=== PATIENT | male | born 1950 | race Caucasian/White ===

== ENCOUNTER 2017-09-22 12:36 | Emergency (ER) | payer MEDICARE, OTHER ==
[2017-09-22] MEDS ORDERED: MECLIZINE HCL 25 MG TABLET PO ONE (13:42)
--- NOTE | 2017-09-22 13:43 | ER Document Report ---
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 Reports about 2 weeks of being lightheaded and equal living off. On Thursday he developed a respiratory illness with cough, green sputum. He does not recall what happened from when he got home Thursday night when he woke up Thursday morning. 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 He does have vertigo type symptoms with nystagmus now made worse with rapid head movement. I have greeted and performed a rapid initial assessment of this patient. A comprehensive ED assessment and evaluation of the patient, analysis of test results and completion of the medical decision making process will be conducted by additional ED providers. TRAVEL OUTSIDE OF THE [place] IN LAST 30 DAYS: No - Related Data Allergies/Adverse Reactions: Penicillins Allergy (Unknown, Verified 09/22/17 12:39) Past Medical History - Social History Chew tobacco use (# tins/day): No Frequency of alcohol use: None Drug Abuse: None - Past Medical History Cardiac Medical History: Reports: Hx Hypertension - BP 150/100 PT STATES THIS IS NORMAL FOR HIM Denies: Hx Coronary Artery Disease, Hx Heart Attack Pulmonary Medical History: Reports: Hx Pneumonia Denies: Hx Asthma, Hx Bronchitis, Hx COPD Neurological Medical History: Denies: Hx Cerebrovascular Accident, Hx Seizures Renal/ Medical History: Denies: Hx Peritoneal Dialysis Musculoskeltal Medical History: Reports Hx Arthritis - ANKLES, WRIST, NECK, BACK Past Surgical History: Reports: Hx Genitourinary Surgery - right ingunal hernia repair 2008, Hx Orthopedic Surgery - left knee surgery, left foot surgery, carpal tunnel surgery right hand,. Denies: Hx Pacemaker - Immunizations Hx Diphtheria, Pertussis, Tetanus Vaccination: No Physical Exam - Vital signs Vitals: Temp Pulse Resp BP Pulse Ox 98.5 F 84 16 136/95 H 95 09/22/17 12:42 09/22/17 12:42 09/22/17 12:42 09/22/17 12:42 09/22/17 12:42 Course - Vital Signs Vital signs: Temp Pulse Resp BP Pulse Ox 98.5 F 84 16 136/95 H 95 09/22/17 12:42 09/22/17 12:42 09/22/17 12:42 09/22/17 12:42 09/22/17 12:42
--- NOTE | 2017-09-22 14:11 | RADIOLOGY REPORT (SQ) ---
EXAM DESCRIPTION: CT HEAD WITHOUT COMPLETED DATE/TIME: 09/22/2017 2:03 pm REASON FOR STUDY: Dizziness, equilibrium off, memory deficits COMPARISON: 09/19/2012 TECHNIQUE: Axial images acquired through the brain without intravenous contrast. Images reviewed wi th bone, brain and subdural windows. Images stored on PACS. All CT scanners at this facility use dose modulation, iterative reconstruction, and/or weight based d osing when appropriate to reduce radiation dose to as low as reasonably achievable (ALARA). [facility]: Dose Right [facility]: CareDose [facility]: Dose Right [facility]: Teradose 4D [facility]: [employer], an [employer] RADIATION DOSE: mGy. LIMITATIONS: None. FINDINGS: VENTRICLES: Normal size and contour. CEREBRUM: No masses. No hemorrhage. No midline shift. No evidence for acute infarction. Normal gra y/white matter differentiation. No areas of low density in the white matter. CEREBELLUM: No masses. No hemorrhage. No alteration of density. No evidence for acute infarction. EXTRAAXIAL SPACES: No fluid collections. No masses. ORBITS AND GLOBE: No intra- or extraconal masses. Normal contour of globe without masses. CALVARIUM: No fracture. PARANASAL SINUSES: Mucosal thickening right maxillary sinus. SOFT TISSUES: No mass or hematoma. OTHER: No other significant finding. IMPRESSION: NORMAL BRAIN CT WITHOUT CONTRAST. EVIDENCE OF ACUTE STROKE: NO. COMMENT: Quality ID # [id number]: Final reports with documentation of one or more dose reduction techniques (e.g., Automated exposure control, adjustment of the mA and/or kV according to patient size, use of iterative reconstruction technique) TECHNICAL DOCUMENTATION: JOB ID: [id number] [employer]- All Rights Reserved
--- NOTE | 2017-09-22 14:28 | RADIOLOGY REPORT (SQ) ---
EXAM DESCRIPTION: CHEST PA/LAT COMPLETED DATE/TIME: 09/22/2017 2:18 pm REASON FOR STUDY: Congested cough with green sputum COMPARISON: 06/19/2011. EXAM PARAMETERS: NUMBER OF VIEWS: two views TECHNIQUE: Digital Frontal and Lateral radiographic views of the chest acquired. RADIATION DOSE: NA LIMITATIONS: none FINDINGS: LUNGS AND PLEURA: No opacities, masses or pneumothorax. No pleural effusion. MEDIASTINUM AND HILAR STRUCTURES: No masses or contour abnormalities. HEART AND VASCULAR STRUCTURES: Heart normal size. No evidence for failure. BONES: No acute findings. Degenerative changes in the spine. HARDWARE: Hardware in the cervical spine. OTHER: No other significant finding. IMPRESSION: NO SIGNIFICANT RADIOGRAPHIC FINDING IN THE CHEST. TECHNICAL DOCUMENTATION: JOB ID: [id number] [employer]- All Rights Reserved
[2017-09-22 15:04] LABS: ABSOLUTE LYMPHOCYTES (AUTO) 0.8 10^3/uL (0.5-4.7); ABSOLUTE MONOCYTES (AUTO) 0.7 10^3/uL (0.1-1.4); ABSOLUTE NEUT (AUTO) 4.5 10^3/uL (1.7-8.2); BASOPHILS % (AUTO) 0.4 % (0-2); EOSINOPHILS % (AUTO) 0.2 % (0-6); HEMATOCRIT 42.2 % (37.9-51.0); HEMOGLOBIN 14.4 g/dL (13.5-17.0); LYMPHOCYTES % (AUTO) 12.7 % (13-45); MEAN CORPUSCULAR HEMOGLOBIN 29.5 pg (27.0-33.4); MEAN CORPUSCULAR HGB CONC 34.3 g/dL (32.0-36.0); MEAN CORPUSCULAR VOLUME 86 fl (80-97); MONOCYTES % (AUTO) 11.2 % (3-13); PLATELET COUNT 142 10^3/uL (150-450); RED CELL DISTRIBUTION WIDTH 12.6 % (11.5-14.0); SEGMENTED NEUTROPHILS % (AUTO) 75.5 % (42-78); TOTAL CELLS COUNTED % (AUTO) 100 %
[2017-09-22 15:15] LABS: ALANINE AMINOTRANSFERASE 46 U/L (21-72); ALBUMIN 4.1 g/dL (3.5-5.0); ALKALINE PHOSPHATASE 50 U/L (38-126); ANION GAP 14 (5-19); ASPARTATE AMINO TRANSFERASE 53 U/L (17-59); BILIRUBIN,DIRECT 0.3 mg/dL (0.0-0.4); BILIRUBIN,TOTAL 0.5 mg/dL (0.2-1.3); BLOOD UREA NITROGEN 17 mg/dL (7-20); CALCIUM 9.5 mg/dL (8.4-10.2); CARBON DIOXIDE 27 mmol/L (22-30); CHLORIDE 102 mmol/L (98-107); GLUCOSE 84 mg/dL (75-110); POTASSIUM 4.4 mmol/L (3.6-5.0); SODIUM 143.1 mmol/L (137-145); TOTAL PROTEIN 6.4 g/dL (6.3-8.2)
--- NOTE | 2017-09-22 16:02 | ER Document Report ---
ED General - General Chief Complaint: Headache Stated Complaint: HEADACHE,COUGH Time Seen by Provider: 09/22/17 13:33 Notes: 66-year-old male with a history of hypertension and smoking presents with about a month and a half of gait instability and repeated falls, describes feeling like he is drunk but not being actually drunk. This is increased in frequency in the last week. 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 He does not remember doing this and then found it this morning. No speech difficulty focal weakness or numbness. He has been having some upper respiratory symptoms including congestion and cough with headache. TRAVEL OUTSIDE OF THE [place] IN LAST 30 DAYS: No - Related Data Allergies/Adverse Reactions: Penicillins Allergy (Unknown, Verified 09/22/17 12:39) Past Medical History - Social History Smoking Status: Never Smoker Chew tobacco use (# tins/day): No Frequency of alcohol use: None Drug Abuse: None Family History: None Patient has suicidal ideation: No Patient has homicidal ideation: No - Past Medical History Cardiac Medical History: Reports: Hx Hypertension - BP 150/100 PT STATES THIS IS NORMAL FOR HIM Denies: Hx Coronary Artery Disease, Hx Heart Attack Pulmonary Medical History: Reports: Hx Pneumonia Denies: Hx Asthma, Hx Bronchitis, Hx COPD Neurological Medical History: Denies: Hx Cerebrovascular Accident, Hx Seizures Renal/ Medical History: Denies: Hx Peritoneal Dialysis Musculoskeltal Medical History: Reports Hx Arthritis - ANKLES, WRIST, NECK, BACK Past Surgical History: Reports: Hx Genitourinary Surgery - right ingunal hernia repair 2008, Hx Orthopedic Surgery - left knee surgery, left foot surgery, carpal tunnel surgery right hand,. Denies: Hx Pacemaker - Immunizations Hx Diphtheria, Pertussis, Tetanus Vaccination: No Review of Systems - Review of Systems Notes: REVIEW OF SYSTEMS GEN: Denies fever, chills, weight loss ENT: Denies sore throat, nasal discharge, ear pain EYES: "They are doing surgery on my eyes because they do not work" CV: Denies chest pain, palpitations, edema RESP: Denies cough, shortness of breath, wheezing GI: Denies abdominal pain, nausea, vomiting, diarrhea MSK: Denies joint pain/swelling, edema, SKIN: Denies rash, skin lesions LYMPH: Denies swollen glands/lymph nodes NEURO: Losing track of time gait difficulty PSYCH: Denies depression, suicidal or homicidal ideation PHYSICAL EXAMINATION General: No acute distress, well-nourished Head: Atraumatic, normocephalic ENT: Mouth normal, oropharynx moist, no exudates or tonsillar enlargement Eyes: Conjunctiva normal, pupils equal, lids normal. Multidirectional lateral and upper nystagmus. Neck: No JVD, supple, no guarding CVS: Normal rate, regular rhythm, no murmurs Resp: No resp distress, equal and normal breath sounds bilaterally GI: Nondistended, soft, no tenderness to palpation, no rebound or guarding Ext: No deformities, no edema, normal range of motion in upper and lower ext Back: No CVA or midline TTP Skin: No rash, warm Lymphatic: No lymphadeopathy noted Neuro: Awake, alert. Face symmetric. GCS 15. Gait is quite unstable. Cannot do can tandem gait. Cranial nerves II through XII are intact except for of previously mentioned nystagmus. Fingernosefinger is intact. Grossly normal strength and sensation in all 4 extremities. Constitutional: No symptoms reported EENT: No symptoms reported Cardiovascular: No symptoms reported Respiratory: No symptoms reported Gastrointestinal: No symptoms reported Genitourinary: No symptoms reported Male Genitourinary: No symptoms reported Musculoskeletal: No symptoms reported Skin: No symptoms reported Hematologic/Lymphatic: No symptoms reported Neurological/Psychological: No symptoms reported Physical Exam - Vital signs Vitals: Temp Pulse Resp BP Pulse Ox 98.5 F 84 16 136/95 H 95 09/22/17 12:42 09/22/17 12:42 09/22/17 12:42 09/22/17 12:42 09/22/17 12:42 Course - Re-evaluation Re-evalutation: 09/22/17 16:02 70 patient presents with insidious onset of gait instability now with multidirectional nystagmus and vertigo type symptoms. He also had an episode of blacking out. This could be transient global amnesia although he continues to form new memories. Concern for posterior circulation stroke. CT head and labs were all done before my evaluation, and they are all negative. Pressure hydrocephalus is also a consideration. Will admit for further workup including possible MRI. 09/22/17 16:[address] scan x-ray and labs are all normal. I am concerned about his neurologic exam. I attempted to admit him here to [place] the hospitalist is concerned that there will not be neurologic backup. I spoke with the transfer center at [facility], with Dr. Brandon who accepted the patient on behalf of Dr. Monge from the medical house staff service. Patient was informed it is okay with this. - Vital Signs Vital signs: Temp Pulse Resp BP Pulse Ox 98.5 F 84 16 136/95 H 95 09/22/17 12:42 09/22/17 12:42 09/22/17 12:42 09/22/17 12:42 09/22/17 12:42 - Laboratory Result Diagrams: 09/22/17 14:30 09/22/17 14:30 Laboratory results interpreted by me: 09/22/17 14:30 Plt Count 142 L Lymphocytes % 12.7 L - Diagnostic Test Radiology reviewed: Image reviewed, Reports reviewed Discharge - Discharge Clinical Impression: Nystagmus, Ataxia Disposition: [facility]
[2017-09-22 21:43] VITALS: BP 135/80
== END 2017-09-22 21:10 | disposition short-term general hospital (02) ==
LOC: ER 12:36
DX: H55.00 Unspecified nystagmus (principal); R27.0 Ataxia, unspecified; R05 Cough; R51 Headache; I10 Essential (primary) hypertension; Z88.0 Allergy status to penicillin
CPT/HCPCS: 99285; 36415; 87070; 87205; 85025; 80053; 71046; 70450; A9270

== ENCOUNTER → 2018-04-13 | Outpatient (CLI) | payer MEDICARE, OTHER ==
--- NOTE | 2018-04-13 14:40 | RADIOLOGY REPORT (SQ) ---
EXAM DESCRIPTION: CT ABD/PELVIS COMBO COMPLETED DATE/TIME: 04/13/2018 9:17 am REASON FOR STUDY: MICROSCOPIC HEMATURIA (R31.21) R31.21 ASYMPTOMATIC MICROSCOPIC HEMATURIA COMPARISON: None. TECHNIQUE: CT scan of the abdomen and pelvis performed with and without intravenous contrast, and wi thout oral contrast. Contrasted imaging performed helical scanning technique and dynamic intravenous contrast injection. Images reviewed with lung, soft tissue, and bone windows. Reconstructed coronal a nd sagittal MPR images reviewed. Delayed images for evaluation of the urinary system also acquired. A ll images stored on PACS. All CT scanners at this facility use dose modulation, iterative reconstruction, and/or weight based d osing when appropriate to reduce radiation dose to as low as reasonably achievable (ALARA). [facility]: Dose Right [facility]: CareDose [facility]: Dose Right [facility]: Teradose 4D [facility]: [employer] CONTRAST TYPE AND DOSE: contrast/concentration: Isovue 370.00 mg/ml; Total Contrast Delivered: 85.0 ml; Total Saline Delivered: 69.0 ml RENAL FUNCTION: Creatinine 0.6 RADIATION DOSE: CT Rad equipment meets quality standard of care and radiation dose reduction techniq ues were employed. CTDIvol: 10.0 - 10.8 mGy. DLP: 1588 mGy-cm. . LIMITATIONS: None. FINDINGS: NON-CONTRASTED IMAGING: No significant renal or bladder calcifications. No other significa nt organ calcifications. POST-CONTRASTED IMAGING: LOWER CHEST: No significant findings. No nodules or infiltrates. LIVER: Normal size. No masses. No dilated ducts. SPLEEN: Normal size. No focal lesions. PANCREAS: No masses. No significant calcifications. No adjacent inflammation or peripancreatic fluid collections. Pancreatic duct not dilated. GALLBLADDER: No identified stones by CT criteria. No inflammatory changes to suggest cholecystitis. ADRENAL GLANDS: No significant masses or asymmetry. RIGHT KIDNEY AND URETER: No solid masses. No significant calcifications. No hydronephrosis or hyd roureter. LEFT KIDNEY AND URETER: No solid masses. No significant calcifications. No hydronephrosis or hydr oureter. AORTA AND VESSELS: No aneurysm. No dissection. Renal arteries, SMA, celiac without stenosis. RETROPERITONEUM: No retroperitoneal adenopathy, hemorrhage or masses. BOWEL AND PERITONEAL CAVITY: No masses or inflammatory changes. No free fluid or peritoneal masses. APPENDIX: Not visualized. PELVIS: Mild symmetric thickening of the urinary bladder wall. Prostatic impression. Prostate 5.5 x 6.8 cm. No pelvic adenopathy. ABDOMINAL WALL: No masses. No hernias. BONES: No acute findings. OTHER: No other significant finding. IMPRESSION: No evidence of urinary tract stones or mass. TECHNICAL DOCUMENTATION: JOB ID: [id number] Quality ID # [id number]: Final reports with documentation of one or more dose reduction techniques (e.g., Au tomated exposure control, adjustment of the mA and/or kV according to patient size, use of iterative reconstruction technique) 2010 [employer]- All Rights Reserved Reading location - IP/workstation name: [email or web address]
== END ==
LOC: RAD 08:33
PROVIDERS: ATTEND Urology
DX: R31.21 Asymptomatic microscopic hematuria (principal)
CPT/HCPCS: 74178; 82565

== ENCOUNTER 2020-02-03 15:46 | Emergency (ER) | payer OTHER, MEDICARE ==
[2020-02-03 16:47] LABS: ABSOLUTE BASOPHILS # (AUTO) 0.1 10^3/uL (0.0-0.2); ABSOLUTE LYMPHOCYTES (AUTO) 1.1 10^3/uL (0.5-4.7); ABSOLUTE MONOCYTES (AUTO) 0.6 10^3/uL (0.1-1.4); ABSOLUTE NEUT (AUTO) 6.8 10^3/uL (1.7-8.2); BASOPHILS % (AUTO) 0.6 % (0-2); EOSINOPHILS % (AUTO) 0.2 % (0-6); HEMATOCRIT 42.4 % (37.9-51.0); HEMOGLOBIN 14.5 g/dL (13.5-17.0); LYMPHOCYTES % (AUTO) 13.2 % (13-45); MEAN CORPUSCULAR HEMOGLOBIN 30.3 pg (27.0-33.4); MEAN CORPUSCULAR HGB CONC 34.3 g/dL (32.0-36.0); MEAN CORPUSCULAR VOLUME 88 fl (80-97); PLATELET COUNT 182 10^3/uL (150-450); RED CELL DISTRIBUTION WIDTH 13.3 % (11.5-14.0); TOTAL CELLS COUNTED % (AUTO) 100 %; WHITE BLOOD COUNT 8.7 10^3/uL (4.0-10.5)
[2020-02-03 16:59] LABS: ALKALINE PHOSPHATASE 42 U/L (38-126); ANION GAP 9 (5-19); ASPARTATE AMINO TRANSFERASE 27 U/L (17-59); BILIRUBIN,TOTAL 0.6 mg/dL (0.2-1.3); BLOOD UREA NITROGEN 14 mg/dL (7-20); CALCIUM 8.9 mg/dL (8.4-10.2); CARBON DIOXIDE 22 mmol/L (22-30); CHLORIDE 105 mmol/L (98-107); GLUCOSE 89 mg/dL (75-110); POTASSIUM 4.4 mmol/L (3.6-5.0); TOTAL PROTEIN 6.7 g/dL (6.3-8.2)
[2020-02-03 18:34] LABS: APPEARANCE,URINE CLEAR; BILIRUBIN,URINE NEGATIVE (NEGATIVE); COLOR,URINE YELLOW; GLUCOSE, URINE NEGATIVE (NEGATIVE); KETONES,URINE NEGATIVE (NEGATIVE); LEUKOCYTE ESTERASE,URINE NEGATIVE (NEGATIVE); NITRITE,URINE NEGATIVE (NEGATIVE); PROTEIN,URINE NEGATIVE (NEGATIVE); URINE SPECIFIC GRAVITY 1.013; UROBILINOGEN,URINE NEGATIVE mg/dL (<2.0)
[2020-02-03] MEDS ORDERED: ONDANSETRON HCL INJ/PF 4 MG/2 ML SDV IV ONE (18:51)
[2020-02-03] MEDS ORDERED: HYDRALAZINE HCL INJ/PF 20 MG/1 ML SDV IV ONE (18:52)
[2020-02-03] MEDS ORDERED: RINGERS SOLUTION,LACTATED 1,000 ML IV ONE (18:52)
--- NOTE | 2020-02-03 18:52 | ER Document Report ---
ED GI/ <FULLERKRUNAL - Last Filed: 02/03/20 21:21> - General Mode of Arrival: Ambulatory Information source: Patient TRAVEL OUTSIDE OF THE [place] IN LAST 30 DAYS: No - Related Data Home Medications: HTn med. Methadone. Ritalin <RHEA MENDOZA - Last Filed: 02/03/20 22:13> - General Chief Complaint: Nausea/Vomiting/Diarrhea Stated Complaint: SHORTNESS OF BREATH Time Seen by Provider: 02/03/20 18:33 Primary Care Provider: BERNARDO SCHROEDER MD [Primary Care Provider] - Follow up as needed Notes: 69-year-old male past medical history significant for hypertension, hep C vocal cord cancer presents to the emergency room complaining of general body aches, nausea vomiting and diarrhea for the past 3 days. States the diarrhea has pretty much resolved but still has the body aches along with the nausea and vomiting. States he only 1 small loose stool today. Denies any fevers. Denies any shortness of breath or difficulty breathing. Does admit to a dry cough for 2 days. No recent travel. No COVID-19 exposure, works as a [employer]. No ill contacts. (RHEA MENDOZA) - Related Data Allergies/Adverse Reactions: Penicillins Allergy (Unknown, Verified 02/03/20 17:54) Past Medical History - General Information source: Patient - Social History Smoking Status: Current Every Day Smoker Chew tobacco use (# tins/day): No Frequency of alcohol use: 1 beer daily Drug Abuse: None Family History: None Patient has homicidal ideation: No - Past Medical History Cardiac Medical History: Reports: Hx Hypertension - BP 150/100 PT STATES THIS IS NORMAL FOR HIM Denies: Hx Coronary Artery Disease, Hx Heart Attack Pulmonary Medical History: Reports: Hx Pneumonia Denies: Hx Asthma, Hx Bronchitis, Hx COPD Neurological Medical History: Denies: Hx Cerebrovascular Accident, Hx Seizures Renal/ Medical History: Denies: Hx Peritoneal Dialysis Musculoskeletal Medical History: Reports Hx Arthritis - ANKLES, WRIST, NECK, BACK Past Surgical History: Reports: Hx Genitourinary Surgery - right ingunal hernia repair 2008, Hx Orthopedic Surgery - left knee surgery, left foot surgery, carpal tunnel surgery right hand,. Denies: Hx Pacemaker - Immunizations Hx Diphtheria, Pertussis, Tetanus Vaccination: No <RHEA MENDOZA - Last Filed: 02/03/20 22:13> Review of Systems - Review of Systems Constitutional: Malaise. denies: Fever EENT: No symptoms reported Cardiovascular: No symptoms reported Respiratory: No symptoms reported Gastrointestinal: Diarrhea, Nausea, Vomiting, Poor appetite. denies: Abdominal pain Musculoskeletal: Muscle pain Skin: denies: Rash Neurological/Psychological: No symptoms reported -: Yes All other systems reviewed and negative <RHEA MENDOZA - Last Filed: 02/03/20 22:13> Physical Exam - General General appearance: Appears well, Alert In distress: Mild - HEENT Head: Normocephalic, Atraumatic Eyes: Normal Pupils: PERRL - Respiratory Respiratory status: No respiratory distress Chest status: Nontender Breath sounds: Normal Chest palpation: Normal - Cardiovascular Rhythm: Regular Heart sounds: Normal auscultation Murmur: No - Abdominal Inspection: Normal Distension: No distension Bowel sounds: Normal Tenderness: Nontender Organomegaly: No organomegaly - Back Back: Normal, Nontender. No: CVA tenderness - Neurological Neuro grossly intact: Yes Cognition: Normal Orientation: AAOx4 Alvaro Coma Scale Eye Opening: Spontaneous [place] Coma Scale Verbal: Oriented Alvaro Coma Scale Motor: Obeys Commands Alvaro Coma Scale Total: 15 Speech: Normal Motor strength normal: LUE, RUE, LLE, RLE Sensory: Normal - Skin Skin Temperature: Warm Skin Moisture: Dry Skin Color: Normal <RHEA MENDOZA - Last Filed: 02/03/20 22:13> - Vital signs Vitals: Temp Pulse Resp BP Pulse Ox 98.2 F 66 20 178/105 H 98 02/03/20 15:59 02/03/20 15:59 02/03/20 15:59 02/03/20 15:59 02/03/20 15:59 Course - Laboratory Result Diagrams: 02/03/20 16:24 02/03/20 16:24 <KRUNAL FULLER - Last Filed: 02/03/20 21:21> - Laboratory Result Diagrams: 02/03/20 16:24 02/03/20 16:24 <RHEA MENDOZA - Last Filed: 02/03/20 22:13> - Re-evaluation Re-evalutation: 02/03/20 21:11 Patient is resting comfortably he is afebrile, nontoxic-appearing, able to tolerate p.o. fluids. Reviewed all test results with patient. Counseled to rest, push fluids, Zofran as needed for nausea. Counseled on the importance to take his medications as prescribed. Outpatient follow-up primary care physician if no improvement in 3 days. Given strict return to emergency room guidelines. All questions were answered. Patient verbalized understanding and agrees with plan of care. (RHEA MENDOZA) - Vital Signs Vital signs: Temp Pulse Resp BP Pulse Ox 98.5 F 62 18 176/93 H 99 02/03/20 21:59 02/03/20 20:42 02/03/20 20:42 02/03/20 21:59 02/03/20 20:42 - Laboratory Laboratory results interpreted by me: 02/03/20 02/03/20 16:24 16:24 Seg Neutrophils % 79.0 H Sodium 135.6 L Creatinine 0.51 L Discharge <KRUNAL FULLER - Last Filed: 02/03/20 21:21> <RHEA MENDOZA - Last Filed: 02/03/20 22:13> - Discharge Clinical Impression: Viral illness Nausea & vomiting Qualifiers: Vomiting type: unspecified Vomiting Intractability: non-intractable Qualified Code(s): R11.2 - Nausea with vomiting, unspecified Diarrhea Qualifiers: Diarrhea type: unspecified type Qualified Code(s): R19.7 - Diarrhea, unspecified Hypertension Qualifiers: Hypertension type: unspecified Qualified Code(s): I10 - Essential (primary) hypertension Condition: Stable Disposition: HOME, SELF-CARE Instructions: Antinausea Medication ([facility]), Viral Syndrome ([facility]), Vomiting ([facility]) Additional Instructions: Home rest x24 hours. Clear liquid diet for the next 24 hours. Zofran as needed for nausea, take your home medications as prescribed. Recheck with your primary care physician if not improving in 2 to 3 days. Return for any new or worsening symptoms. Forms: Elevated Blood Pressure, Return to Work Referrals: BERNARDO SCHROEDER MD [Primary Care Provider] - Follow up as needed
[2020-02-03 20:50] LABS: A TYPE INFLUENZA AG NEGATIVE (NEGATIVE); B INFLUENZA AG NEGATIVE (NEGATIVE)
[2020-02-03] MEDS ORDERED: ONDANSETRON ODT 4 MG TAB (6 TAB/ER DISP) PO PRN (21:15)
[2020-02-03 22:02] VITALS: BP 176/93
== END 2020-02-03 21:59 | disposition home or self-care (01) ==
LOC: ER 15:46
DX: B34.9 Viral infection, unspecified (principal); R11.2 Nausea with vomiting, unspecified; R19.7 Diarrhea, unspecified; R06.02 Shortness of breath; I10 Essential (primary) hypertension; F17.200 Nicotine dependence, unspecified, uncomplicated; Z86.19 Personal history of other infectious and parasitic diseases
CPT/HCPCS: 99283; 96361; 96374; 96375; 36415; 85025; 80053; 81001; 87804; J0360; J2405; J7120; A9270

== ENCOUNTER 2020-03-19 10:08 | Day surgery (SDC) | payer OTHER, MEDICARE ==
[2020-03-14 09:52] LABS: HEMATOCRIT 41.4 % (37.9-51.0); HEMOGLOBIN 14.1 g/dL (13.5-17.0); MEAN CORPUSCULAR HEMOGLOBIN 30.2 pg (27.0-33.4); MEAN CORPUSCULAR VOLUME 89 fl (80-97); PLATELET COUNT 172 10^3/uL (150-450); RED BLOOD COUNT 4.67 10^6/uL (4.35-5.55); RED CELL DISTRIBUTION WIDTH 13.3 % (11.5-14.0); WHITE BLOOD COUNT 6.2 10^3/uL (4.0-10.5)
[2020-03-14 09:54] LABS: APPEARANCE,URINE CLEAR; BILIRUBIN,URINE NEGATIVE (NEGATIVE); COLOR,URINE YELLOW; GLUCOSE, URINE NEGATIVE (NEGATIVE); KETONES,URINE NEGATIVE (NEGATIVE); LEUKOCYTE ESTERASE,URINE NEGATIVE (NEGATIVE); NITRITE,URINE NEGATIVE (NEGATIVE); PROTEIN,URINE NEGATIVE (NEGATIVE); URINE SPECIFIC GRAVITY 1.013; UROBILINOGEN,URINE NEGATIVE mg/dL (<2.0)
[2020-03-14 10:22] LABS: ANION GAP 8 (5-19); BLOOD UREA NITROGEN 11 mg/dL (7-20); CALCIUM 8.8 mg/dL (8.4-10.2); CARBON DIOXIDE 25 mmol/L (22-30); CHLORIDE 104 mmol/L (98-107); GLUCOSE 93 mg/dL (75-110); POTASSIUM 4.4 mmol/L (3.6-5.0)
--- NOTE | 2020-03-14 12:36 | RADIOLOGY REPORT (SQ) ---
EXAM DESCRIPTION: CHEST PA/LATERAL IMAGES COMPLETED DATE/TIME: 03/14/2020 9:23 am REASON FOR STUDY: PRE-OP COMPARISON: 09/22/2017 EXAM PARAMETERS: NUMBER OF VIEWS: two views TECHNIQUE: Digital Frontal and Lateral radiographic views of the chest acquired. RADIATION DOSE: NA LIMITATIONS: none FINDINGS: LUNGS AND PLEURA: No opacities, masses or pneumothorax. No pleural effusion. MEDIASTINUM AND HILAR STRUCTURES: No masses or contour abnormalities. HEART AND VASCULAR STRUCTURES: Heart normal size. No evidence for failure. BONES: No acute findings. HARDWARE: None in the chest. OTHER: No other significant finding. IMPRESSION: NO SIGNIFICANT RADIOGRAPHIC FINDING IN THE CHEST. TECHNICAL DOCUMENTATION: JOB ID: [id number] 2010 [facility]- All Rights Reserved Reading location - IP/workstation name: [email or web address]
--- NOTE | 2020-03-14 13:12 | EKG REPORT ---
SEVERITY:- ABNORMAL ECG - SINUS RHYTHM NONSPECIFIC T ABNORMALITIES, INFERIOR LEADS : Confirmed by: Rajesh Ramires 14-Mar-2020 13:12:19
[~2020-03-19 10:08] MED LIST: CLINDAMYCIN 600 MG/D5W RTU 600 MG/50 ML RTUPB IV PRN; FENTANYL CITRATE INJ/PF 100 MCG/2 ML AMPUL ONE; KETAMINE HCL INJ 500 MG/10 ML VIAL ONE; LACTATED RINGERS 1000 ML IV PRN; LIDOCAINE 0.5% INJ-PF (5 MG/ML) 50 ML SDV SUBCUT PRN; MIDAZOLAM 2 MG/2 ML INJ ONE; ONDANSETRON HCL INJ/PF 4 MG/2 ML SDV ONE; PROPOFOL INJ 200 MG/20 ML VIAL IV ONE
[2020-03-19] MEDS ORDERED: CLINDAMYCIN 600 MG/D5W RTU 600 MG/50 ML RTUPB IV ONE (10:54)
[2020-03-19] MEDS ORDERED: LIDOCAINE 1%/EPINEPHRINE INJ 20 ML VIAL ONE (13:41)
[2020-03-19] MEDS ORDERED: BUPIVACAINE HCL 0.5 % INJ/PF 30 ML SDV ONE (13:41)
[2020-03-19] MEDS ORDERED: DIPHENHYDRAMINE HCL 50 MG/ML VIAL IV PRN (14:10)
[2020-03-19] MEDS ORDERED: MORPHINE SULFATE 10 MG/ML INJ IV PRN (14:10)
[2020-03-19] MEDS ORDERED: FENTANYL CITRATE INJ/PF 100 MCG/2 ML AMPUL IV PRN ×3 (14:10)
[2020-03-19] MEDS ORDERED: MEPERIDINE HCL/PF INJ 25 MG/1 ML DISP.SYRIN IV PRN (14:10)
[2020-03-19] MEDS ORDERED: ONDANSETRON HCL INJ/PF 4 MG/2 ML SDV IV PRN (14:10)
[2020-03-19] MEDS ORDERED: PROMETHAZINE HCL INJ 25 MG/1 ML VIAL IV PRN ×2 (14:10)
--- NOTE | 2020-03-19 14:38 | Operative Report ---
Operative Report DATE OF SURGERY: 03/19/20 PREOPERATIVE DIAGNOSIS: Left medial meniscal tear POSTOPERATIVE DIAGNOSIS: Left medial meniscal tear. 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 Intact ACL. Lateral meniscal tear. Grade II-III chondromalacia patellofemoral compartment. Grade I-II chondromalacia of the lateral compartment. OPERATION: Arthroscopic partial medial and lateral meniscectomies SURGEON: DRE PIERSON ANESTHESIA: LMAC PROCEDURE: With the patient on the operating room table the left lower extremity was prepped and draped in a sterile fashion. The knee is insufflated with a combination of Marcaine, Xylocaine, and epinephrine through medial and lateral and patella portals. The portals were then created and used for the introduction the arthroscope and debridements mentation. Joint is examined in systematic fashion findings as above. Using combination of basket rongeurs, mechanical shaver, and electric frequency ablation probe a partial medial meniscectomy performed from approximately 8:00 to 12:00 on the face of the dial. Similarly a partial lateral meniscectomies performed from approximately 5:00 to 12:00 on the face of the dial. The groin is again examined in systematic fashion with no new findings. Instrumentation was removed. The portals reapproximated erupted nylon. A sterile compressive dressing was applied and the patient was returned to the PACU in satisfactory condition.
--- NOTE | 2020-03-19 14:39 | Discharge Summary ---
Discharge Summary (SDC) - Discharge Final Diagnosis: Left medial meniscal tear Date of Surgery: 03/19/20 Discharge Date: 03/19/20 Condition: Good Treatment or Instructions: Weightbearing as tolerated ambulation. Remove compressive wrap on Thursday. An underlying OpSite dressing can be left in place until you return to the office. You can shower but please do not immerse the extremity. Referrals: FIOR CALVIN FNP-C [Primary Care Provider] - Discharge Diet: Regular Respiratory Treatments at Home: Deep Breathing/Coughing Discharge Activity: Balance Activity w/Rest, No tub bath Home Care Assistance: None Needed Report the Following to Your Physician Immediately: Shortness of Breath, Fever over 101 Degrees, Drainage-Foul Smelling
[2020-03-19 16:33] VITALS: BP 117/75
== END 2020-03-19 16:27 | disposition home or self-care (01) ==
LOC: OROUT 10:08
PROVIDERS: ATTEND Orthopaedic Surgery
DX: S83.282A Other tear of lateral meniscus, current injury, left knee, initial encounter (principal); S83.242A Other tear of medial meniscus, current injury, left knee, initial encounter; M22.42 Chondromalacia patellae, left knee; X58.XXXA Exposure to other specified factors, initial encounter; M25.562 Pain in left knee; Z88.0 Allergy status to penicillin; Z79.899 Other long term (current) drug therapy; Z91.81 History of falling
CPT/HCPCS: 93005; 36415; 85027; 87635; 80048; 81001; 71046; 93010; 29880; J2250; J3490 ×3; J3010; J2405; J2704; C9803